=== PATIENT | male | born 2000 | race Caucasian/White ===

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

== ENCOUNTER 2019-09-18 10:59 | Emergency (ER) | payer OTHER ==
[2019-09-18 11:04] VITALS: BP 156/65; PULSE 64; TEMP 98.5; BMI 32.1
--- NOTE | 2019-09-18 12:07 | PDOC ---
History of Present Illness - General Chief Complaint: Ingrown toenail Stated Complaint: RT TOE PAIN Time Seen by Provider: 09/18/19 11:37 - History of Present Illness Initial Comments: 09/18/19 12:05 19-year-old male without comorbidities presents for evaluation of left great toe pain after twisting type injury 2 days ago Past History - Past Medical History Allergies/Adverse Reactions: Allergies Allergy/AdvReac Type Severity Reaction Status Date / Time No Known Allergies Allergy Verified 09/18/19 11:00 Home Medications: Ambulatory Orders NK [No Known Home Medication] 05/20/18 COPD: No DVT: No Dementia: No - Immunization History Immunization Up to Date: Yes - Psycho Social/Smoking Cessation Hx Smoking History: Never smoked Hx Alcohol Use: No Drug/Substance Use Hx: No Substance Use Type: None Review of Systems - Review of Systems Musculoskeletal: Yes: Joint Pain *Physical Exam - Vital Signs Last Vital Signs Temp Pulse Resp BP Pulse Ox 98.5 F 64 16 156/65 98 09/18/19 11:01 09/18/19 11:01 09/18/19 11:01 09/18/19 11:01 09/18/19 11:01 - Physical Exam Comments: 09/18/19 12:05 Left great toe skin color and temperature normal range of motion is slightly limited at the MTPJ. There is mild tenderness at the lateral Aspect of the MTPJ. No gross sensorimotor deficits neurovascular intact. ED Treatment Course - RADIOLOGY Radiology Studies Ordered: Category Date Time Status FOOT-LEFT [RAD] Stat Radiology 09/18/19 11:47 Taken Medical Decision Making - Medical Decision Making 09/18/19 12:06 X-rays left foot show no evidence of fracture trauma destructive process this is a great toe sprain. Weight-bear as tolerated follow-up with Ortho Discharge - Discharge Information Problems reviewed: Yes Clinical Impression/Diagnosis: Sprain of toe, great, left Condition: Stable Disposition: HOME - Admission No - Follow up/Referral Referrals: Ha Leahy DO [Staff Physician] - - Patient Discharge Instructions Additional Instructions: He may weight-bear as tolerated. Return to the emergency room for worsening symptoms. Without fail, please follow-up with orthopedic surgery in 1 to 2 days for further evaluation and treatment options. Tylenol and Motrin as directed for pain. - Post Discharge Activity
== END 2019-09-18 12:09 | disposition home or self-care (01) ==
LOC: JERFT 10:59
DX: S93.502A Unspecified sprain of left great toe, initial encounter (principal); X50.1XXA Overexertion from prolonged static or awkward postures, initial encounter; Y93.89 Activity, other specified; Y92.89 Other specified places as the place of occurrence of the external cause; Y99.8 Other external cause status
CPT/HCPCS: 73630-TC-LT; 99281-25

== ENCOUNTER 2021-02-06 08:36 | Emergency (ER) | payer OTHER ==
[2021-02-06 08:55] VITALS: TEMP 98.7; BMI 27.8
[2021-02-06 09:36] LABS: BASO % 0.8 % (0-2.0); EOS % 0.5 % (0-4.5); HEMATOCRIT 44.5 % (35.4-49); HEMOGLOBIN 15.1 GM/dL (11.7-16.9); LYMPH % 35.3 % (8-40); MCH 31.4 pg (25.7-33.7); MCHC 33.9 g/dl (32.0-35.9); MEAN CELL VOLUME 92.6 fl (80-96); MEAN PLT VOLUME 8.7 fl (7.5-11.1); MONO % 16.1 % (3.8-10.2); NEUT % 47.3 % (42.8-82.8); PLATELET COUNT 200 K/MM3 (134-434); RDW 13.3 % (11.9-15.9); WHITE BLOOD COUNT 9.7 K/mm3 (4.0-10.0)
[2021-02-06 09:55] LABS: INR 1.1 (0.83-1.09); POTASSIUM 4.3 mmol/L (3.5-5.1); PROTHROMBIN TIME (PATIENT) 13.5 SEC (9.7-13.0)
[2021-02-06 09:57] LABS: ACTIVATED PTT 34.6 SECONDS (25.2-36.5); ALBUMIN 3.6 g/dl (3.4-5.0); BLOOD UREA NITROGEN 14.3 mg/dL (7-18); CALCIUM 8.9 mg/dL (8.5-10.1)
[2021-02-06 10:02] LABS: TOT PROT 6.9 g/dl (6.4-8.2)
[2021-02-06 10:31] VITALS: BP 113/70; PULSE 67
[2021-02-06 10:56] LABS: ANISOCYTOSIS 1+; MACROCYTOSIS 0; PLATELET ESTIMATE NORMAL
== END 2021-02-06 10:31 | disposition home or self-care (01) ==
LOC: JER 08:36
DX: K92.1 Melena (principal); K59.00 Constipation, unspecified
CPT/HCPCS: 36415; 80053; 82272; 85025; 85610; 85730; 99284-25

== ENCOUNTER 2021-02-07 17:49 | Emergency (ER) | payer OTHER ==
[2021-02-07 18:33] VITALS: BP 118/66; PULSE 78; TEMP 99.6; BMI 27.8
== END 2021-02-07 21:39 | disposition home or self-care (01) ==
LOC: JER 17:49
DX: K62.5 Hemorrhage of anus and rectum (principal)
CPT/HCPCS: 99283-25; C9803; U0003; U0005